=== PATIENT | male | born 1985 | race Caucasian/White ===

== ENCOUNTER 2018-02-13 16:39 | Observation (INO) | payer BC, OTHER ==
[~2018-02-13] VITALS: Ht 172.7 cm; Wt 119.2 kg
[~2018-02-13 16:39] MED LIST: CYCL-36 PO; DICY1TAB26 PO; LORTA10 PO; PROM25SU8 PO
[2018-02-13 16:45] VITALS: BP 159/81; PULSE 60; RESP 16; TEMP 98.6; O2SAT 97
[2018-02-13] MEDS ORDERED: AMOX250C3 PO (17:15)
[2018-02-13] MEDS ORDERED: NITROGLYCERIN 2% OINT 1 GM PACKET TOP ONE (17:30)
[2018-02-13] MEDS ORDERED: ASPIRIN 81 MG CHEW TAB PO ONE (17:30)
[2018-02-13] MEDS ORDERED: SODIUM CHLORIDE 0.9% FLUSH 10 ML FLUSH IVF PRN (17:30)
[2018-02-13 17:36] VITALS: BP 159/79; PULSE 92; RESP 18; O2SAT 99
--- NOTE | 2018-02-13 17:36 | RADRPT ---
EXAM DATE/TIME: 02/13/2018 17:20 [place] COMPARISON: No previous studies available for comparison. INDICATIONS : Chest pain, shortness of breath for 3 days MEDICAL HISTORY : None. SURGICAL HISTORY : None. ENCOUNTER: Initial ACUITY: 3 days PAIN SCORE: 7/10 LOCATION: Mid-line chest FINDINGS: There is prominence of the right peritracheal stripe this may relate to some rotation of the frontal view. adenopathy is not excluded. If indicated, CT would be suggested for further evaluation. Lungs a re grossly clear no effusion is suspected. CONCLUSION: Abnormal chest appearance Karl Miller MD on February 13, 2018 at 17:32 Board Certified Radiologist. This report was verified electronically.
[2018-02-13 17:55] LABS: AUTOMATED NEUTROPHIL # 4.5 TH/MM3 (1.8-7.7); BASOPHIL % 0.2 % (0.0-2.0); EOSINOPHIL # 0.2 TH/MM3 (0-0.4); EOSINOPHIL % 2.3 % (0.0-4.0); HEMATOCRIT 43.3 % (39.0-51.0); HEMOGLOBIN 14.5 GM/DL (13.0-17.0); LYMPH % 21.8 % (9.0-44.0); LYMPHOCYTE # 1.5 TH/MM3 (1.0-4.8); MEAN CELL VOLUME 89.2 FL (80.0-100.0); MEAN CORPUSCULAR HGB CONC 33.6 % (32.0-36.0); MEAN PLATELET VOLUME 9.1 FL (7.0-11.0); MONO % 10.5 % (0.0-8.0); MONOCYTE # 0.7 TH/MM3 (0-0.9); NEUT % 65.2 % (16.0-70.0); PLATELET COUNT 199 TH/MM3 (150-450); RED BLOOD COUNT 4.85 MIL/MM3 (4.50-5.90); RED CELL DISTRIBUTION WIDTH 12.7 % (11.6-17.2); WHITE BLOOD COUNT 6.9 TH/MM3 (4.0-11.0)
[2018-02-13] MEDS ORDERED: DULA10IN SQ (18:04)
[2018-02-13 18:05] LABS: CHLORIDE 104 MEQ/L (98-107); SODIUM (NA) 138 MEQ/L (136-145)
--- NOTE | 2018-02-13 18:05 | PD ---
HPI . Chest pain Chief Complaint: Chest Pain Time Seen by Provider: 17:14 Travel History International Travel<30 days: No Contact w/Intl Traveler<30days: No Traveled to known affect area: No History of Present Illness HPI This patient presents with chief complaint of chest pain. He has had chest pain that comes and goes for the last 1-2 weeks. The pain lasts anywhere from 1 -10 minutes. It occurs 2-3 times per day. He describes the pain as a pressure- like stabbing sensation when she rates 6/10. He states that he has subsequently developed a cough, congestion, subjective fever and myalgias. However, the chest pain preceded the cough, etc. by more than a week. He has risk factors for coronary artery disease in that he uses tobacco and has a history of diabetes. PFSH Past Medical History Musculoskeletal: Yes (CHRONIC BACK PAIN) Social History Alcohol Use: Yes (OCCASIONAL) Tobacco Use: Yes (2 PPD) Substance Use: No Allergies-Medications (Allergen,Severity, Reaction): Coded Allergies: No Known Allergies (Verified Adverse Reaction, Unknown, 02/13/18) Reported Meds & Prescriptions Reported Meds & Active Scripts Active Reported Trulicity Inj (Dulaglutide Inj) 0.75 Mg/0.5 Ml Pen 0.75 Mg SQ Q7D Amoxicillin 250 Mg Cap 0 PO DAILY Review of Systems Except as stated in HPI: all other systems reviewed are Neg General / Constitutional: Positive: Fever, Chills Cardiovascular: Positive: Chest Pain or Discomfort Respiratory: Positive: Cough Musculoskeletal: Positive: Myalgias Physical Exam Narrative GENERAL: This is a healthy-appearing young man who is in no distress. SKIN: warm/dry. Normal color. HEAD: Normocephalic. Atraumatic. EYES: Pupils equal and round. No scleral icterus. No injection or drainage. ENT: No nasal bleeding or discharge. Mucous membranes pink and moist. NECK: Trachea midline. Full range of motion without pain.. CARDIOVASCULAR: Regular rate and rhythm. Heart sounds normal. RESPIRATORY: No accessory muscle use. Clear to auscultation. Breath sounds equal bilaterally. Positive chest wall tenderness. GASTROINTESTINAL: Abdomen soft. Nontender. Bowel sounds present. Nondistended. MUSCULOSKELETAL: No obvious deformities. NEUROLOGICAL: Awake and alert. No obvious cranial nerve deficits. Motor grossly within normal limits. Normal speech. PSYCHIATRIC: Appropriate mood and affect; insight and judgment normal. Data Data Last Documented VS Vital Signs Date Time Temp Pulse Resp B/P (MAP) Pulse Ox O2 Delivery O2 Flow Rate FiO2 02/13/18 17:36 92 18 159/79 (105) 99 Room Air 02/13/18 16:45 98.6 Orders Orders Chest, Pa & Lat (02/13/18 17:15) Electrocardiogram (02/13/18 ) Basic Metabolic Panel (Bmp) (02/13/18 17:27) Complete Blood Count With Diff (02/13/18 17:27) Magnesium (Mg) (02/13/18 17:27) Prothrombin Time / Inr (Pt) (02/13/18 17:27) Act Partial Throm Time (Ptt) (02/13/18 17:27) Troponin I (02/13/18 17:27) Ecg Monitoring (02/13/18 17:27) Iv Access Insert/Monitor (02/13/18 17:27) Oximetry (02/13/18 17:27) Aspirin Chew (Aspirin Chew) (02/13/18 17:30) Nitroglycerin 2% Oint (Nitroglycerin 2% (02/13/18 17:30) Sodium Chloride 0.9% Flush (Ns Flush) (02/13/18 17:30) Labs Laboratory Tests Test 02/13/18 17:35 White Blood Count 6.9 TH/MM3 Red Blood Count 4.85 MIL/MM3 Hemoglobin 14.5 GM/DL Hematocrit 43.3 % Mean Corpuscular Volume 89.2 FL Mean Corpuscular Hemoglobin 30.0 PG Mean Corpuscular Hemoglobin Concent 33.6 % Red Cell Distribution Width 12.7 % Platelet Count 199 TH/MM3 Mean Platelet Volume 9.1 FL Neutrophils (%) (Auto) 65.2 % Lymphocytes (%) (Auto) 21.8 % Monocytes (%) (Auto) 10.5 % Eosinophils (%) (Auto) 2.3 % Basophils (%) (Auto) 0.2 % Neutrophils # (Auto) 4.5 TH/MM3 Lymphocytes # (Auto) 1.5 TH/MM3 Monocytes # (Auto) 0.7 TH/MM3 Eosinophils # (Auto) 0.2 TH/MM3 Basophils # (Auto) 0.0 TH/MM3 CBC Comment DIFF FINAL Differential Comment Prothrombin Time 10.5 SEC Prothromb Time International Ratio 1.0 RATIO Activated Partial Thromboplast Time 24.7 SEC Blood Urea Nitrogen 9 MG/DL Creatinine 0.83 MG/DL Random Glucose 85 MG/DL Calcium Level 9.6 MG/DL Magnesium Level 2.2 MG/DL Sodium Level 138 MEQ/L Potassium Level 4.0 MEQ/L Chloride Level 104 MEQ/L Carbon Dioxide Level 30.8 MEQ/L Anion Gap 3 MEQ/L Estimat Glomerular Filtration Rate 106 ML/MIN Troponin I LESS THAN 0.02 NG/ML MDM Medical Decision Making Medical Screen Exam Complete: Yes Emergency Medical Condition: Yes Interpretation(s) EKG shows a normal sinus rhythm with no acute ischemic change Differential Diagnosis Differential diagnosis of chest pain includes but is not limited to musculoskeletal pain, pulmonary embolism, acute coronary syndrome, pneumonia, pleurisy Narrative Course This is a patient with a history of KARLA, DM and tobacco use who presents to us with intermittent chest pain for the last couple of weeks. Cardiac workup is in process. He has been given aspirin and Nitropaste. CBC & BMP Diagram 02/13/18 17:35 Calcium Level 9.6, Magnesium Level 2.2 trop < 0.02 CXR: There is prominence of the right peritracheal stripe this may relate to some rotation of the frontal view. adenopathy is not excluded. If indicated, CT would be suggested for further evaluation. Lungs are grossly clear no effusion is suspected. The patient has remained pain-free in our department. He is agreeable to admission to the chest pain center for further evaluation of his chest pain. Diagnosis Primary Impression: Chest pain Qualified Codes: R07.9 - Chest pain, unspecified Admitting Information Admitting Physician Requests: Observation Condition: Stable Marilee Resendiz MD Feb 13, 2018 18:05
[2018-02-13 18:08] LABS: CALCIUM 9.6 MG/DL (8.5-10.1)
[2018-02-13 18:09] LABS: BICARBONATE 30.8 MEQ/L (21.0-32.0); BLOOD UREA NITROGEN 9 MG/DL (7-18); GLUCOSE,RANDOM 85 MG/DL (74-106); MAGNESIUM 2.2 MG/DL (1.5-2.5)
[2018-02-13 18:11] LABS: PROTHROMBIN TIME - PATIENT 10.5 SEC (9.8-11.6)
[2018-02-13 18:12] LABS: CREATININE 0.83 MG/DL (0.60-1.30); GLOMERULAR FILTRATION RATE 106 ML/MIN (>89)
[2018-02-13 18:17] LABS: TROPONIN I LESS THAN 0.02 NG/ML (0.02-0.05)
[2018-02-13 18:28] VITALS: BP 154/85; PULSE 76; RESP 18; O2SAT 97
--- NOTE | 2018-02-13 19:05 | PD ---
Physical Exam Time Seen by Provider: 19:[address] no left this patient with me to admit to the chest pain center. Data Data Last Documented VS Vital Signs Date Time Temp Pulse Resp B/P (MAP) Pulse Ox O2 Delivery O2 Flow Rate FiO2 02/13/18 18:28 76 18 154/85 (108) 97 Room Air 02/13/18 16:45 98.6 Orders Orders Chest, Pa & Lat (02/13/18 17:15) Electrocardiogram (02/13/18 ) Basic Metabolic Panel (Bmp) (02/13/18 17:27) Complete Blood Count With Diff (02/13/18 17:27) Magnesium (Mg) (02/13/18 17:27) Prothrombin Time / Inr (Pt) (02/13/18 17:27) Act Partial Throm Time (Ptt) (02/13/18 17:27) Troponin I (02/13/18 17:27) Ecg Monitoring (02/13/18 17:27) Iv Access Insert/Monitor (02/13/18 17:27) Oximetry (02/13/18 17:27) Aspirin Chew (Aspirin Chew) (02/13/18 17:30) Nitroglycerin 2% Oint (Nitroglycerin 2% (02/13/18 17:30) Sodium Chloride 0.9% Flush (Ns Flush) (02/13/18 17:30) Labs Laboratory Tests Test 02/13/18 17:35 White Blood Count 6.9 TH/MM3 Red Blood Count 4.85 MIL/MM3 Hemoglobin 14.5 GM/DL Hematocrit 43.3 % Mean Corpuscular Volume 89.2 FL Mean Corpuscular Hemoglobin 30.0 PG Mean Corpuscular Hemoglobin Concent 33.6 % Red Cell Distribution Width 12.7 % Platelet Count 199 TH/MM3 Mean Platelet Volume 9.1 FL Neutrophils (%) (Auto) 65.2 % Lymphocytes (%) (Auto) 21.8 % Monocytes (%) (Auto) 10.5 % Eosinophils (%) (Auto) 2.3 % Basophils (%) (Auto) 0.2 % Neutrophils # (Auto) 4.5 TH/MM3 Lymphocytes # (Auto) 1.5 TH/MM3 Monocytes # (Auto) 0.7 TH/MM3 Eosinophils # (Auto) 0.2 TH/MM3 Basophils # (Auto) 0.0 TH/MM3 CBC Comment DIFF FINAL Differential Comment Prothrombin Time 10.5 SEC Prothromb Time International Ratio 1.0 RATIO Activated Partial Thromboplast Time 24.7 SEC Blood Urea Nitrogen 9 MG/DL Creatinine 0.83 MG/DL Random Glucose 85 MG/DL Calcium Level 9.6 MG/DL Magnesium Level 2.2 MG/DL Sodium Level 138 MEQ/L Potassium Level 4.0 MEQ/L Chloride Level 104 MEQ/L Carbon Dioxide Level 30.8 MEQ/L Anion Gap 3 MEQ/L Estimat Glomerular Filtration Rate 106 ML/MIN Troponin I LESS THAN 0.02 NG/ML [facility] Medical Record Reviewed: Yes Supervised Visit with FELICIANO: No Interpretation(s) The EKG shows normal sinus rhythm an EKG is normal. The cardiac enzymes are normal. Differential Diagnosis Chest pain etiology undetermined, acute coronary syndrome, non-STEMI myocardial infarction Narrative Course The patient has chest pain etiology undetermined. He will be admitted to the chest pain center. Diagnosis Primary Impression: Chest pain Qualified Codes: R07.9 - Chest pain, unspecified Condition: Stable Marilee Resendiz MD Feb 13, 2018 19:05
[2018-02-13] MEDS ORDERED: SODIUM CHLORIDE 0.9% FLUSH 10 ML FLUSH IV FLUSH PRN (19:30)
[2018-02-13] MEDS ORDERED: ONDANSETRON HCL 4 MG/2 ML VIAL IV PUSH PRN (19:30)
--- NOTE | 2018-02-13 19:35 | PD ---
Physical Exam Time Seen by Provider: 19:32 Narrative The patient was given to me by Dr. Estrella to make a disposition/admit to chest pain center. Data Data Last Documented VS Vital Signs Date Time Temp Pulse Resp B/P (MAP) Pulse Ox O2 Delivery O2 Flow Rate FiO2 02/13/18 18:28 76 18 154/85 (108) 97 Room Air 02/13/18 16:45 98.6 Orders Orders Chest, Pa & Lat (02/13/18 17:15) Electrocardiogram (02/13/18 ) Basic Metabolic Panel (Bmp) (02/13/18 17:27) Complete Blood Count With Diff (02/13/18 17:27) Magnesium (Mg) (02/13/18 17:27) Prothrombin Time / Inr (Pt) (02/13/18 17:27) Act Partial Throm Time (Ptt) (02/13/18 17:27) Troponin I (02/13/18 17:27) Ecg Monitoring (02/13/18 17:27) Iv Access Insert/Monitor (02/13/18 17:27) Oximetry (02/13/18 17:27) Aspirin Chew (Aspirin Chew) (02/13/18 17:30) Nitroglycerin 2% Oint (Nitroglycerin 2% (02/13/18 17:30) Sodium Chloride 0.9% Flush (Ns Flush) (02/13/18 17:30) Place In Observation (02/13/18 19:26) Activity Bed Rest With Brp (02/13/18 19:26) Vital Signs (Adult) Q4H (02/13/18 19:26) Cardiac Rhythm .As Directed (02/13/18 19:26) Notify Dr: Other .PRN (02/13/18 19:26) Notify DrKirt Parameters (02/13/18 19:26) Resp Oxygen Nasal Cannula (02/13/18 ) Diet Npo (02/14/18 Breakfast) Ckmb (Isoenzyme) Profile (02/13/18 20:35) Ckmb (Isoenzyme) Profile (02/13/18 23:35) Troponin I (02/13/18 20:35) Troponin I (02/13/18 23:35) Electrocardiogram (02/13/18 20:35) Electrocardiogram (3/28/18 23:35) ^ Obtain (02/13/18 19:26) Sodium Chlor 0.9% 1000 Ml Inj (Ns 1000 M (02/13/18 19:26) Sodium Chloride 0.9% Flush (Ns Flush) (02/13/18 19:30) Sodium Chloride 0.9% Flush (Ns Flush) (02/13/18 21:00) Acetaminophen (Tylenol) (02/13/18 19:30) Ondansetron Inj (Zofran Inj) (02/13/18 19:30) Ornamental Plasterer Helper / Telemetry KATIANA.Q8H (02/13/18 19:26) Heparin Inj (Heparin Inj) (02/13/18 19:30) Labs Laboratory Tests Test 02/13/18 17:35 White Blood Count 6.9 TH/MM3 Red Blood Count 4.85 MIL/MM3 Hemoglobin 14.5 GM/DL Hematocrit 43.3 % Mean Corpuscular Volume 89.2 FL Mean Corpuscular Hemoglobin 30.0 PG Mean Corpuscular Hemoglobin Concent 33.6 % Red Cell Distribution Width 12.7 % Platelet Count 199 TH/MM3 Mean Platelet Volume 9.1 FL Neutrophils (%) (Auto) 65.2 % Lymphocytes (%) (Auto) 21.8 % Monocytes (%) (Auto) 10.5 % Eosinophils (%) (Auto) 2.3 % Basophils (%) (Auto) 0.2 % Neutrophils # (Auto) 4.5 TH/MM3 Lymphocytes # (Auto) 1.5 TH/MM3 Monocytes # (Auto) 0.7 TH/MM3 Eosinophils # (Auto) 0.2 TH/MM3 Basophils # (Auto) 0.0 TH/MM3 CBC Comment DIFF FINAL Differential Comment Prothrombin Time 10.5 SEC Prothromb Time International Ratio 1.0 RATIO Activated Partial Thromboplast Time 24.7 SEC Blood Urea Nitrogen 9 MG/DL Creatinine 0.83 MG/DL Random Glucose 85 MG/DL Calcium Level 9.6 MG/DL Magnesium Level 2.2 MG/DL Sodium Level 138 MEQ/L Potassium Level 4.0 MEQ/L Chloride Level 104 MEQ/L Carbon Dioxide Level 30.8 MEQ/L Anion Gap 3 MEQ/L Estimat Glomerular Filtration Rate 106 ML/MIN Troponin I LESS THAN 0.02 NG/ML [facility] Medical Record Reviewed: Yes Supervised Visit with FELICIANO: No Interpretation(s) The EKG is normal in the cardiac enzymes are normal. Differential Diagnosis Chest pain etiology undetermined, acute coronary syndrome-unlikely, non-STEMI- unlikely Narrative Course The patient has chest pain etiology undetermined. Plan: He will be admitted to the chest pain center for a stress test/rule out UT. Diagnosis Primary Impression: Chest pain Qualified Codes: R07.9 - Chest pain, unspecified Admitting Information Admitting Physician Requests: Observation Condition: Stable Jignesh Bland MD Feb 13, 2018 19:35
[2018-02-13] MEDS: SODIUM CHLOR 0.9% 1000 ML INJ 1,000 ML IV SCH (19:38)
[2018-02-13 19:40] VITALS: BP 116/67; PULSE 104; RESP 16; O2SAT 97
[2018-02-13 20:00] VITALS: BP 113/60; PULSE 102; PULSE 83; RESP 16; TEMP 98.4; O2SAT 96
[2018-02-13] MEDS: SODIUM CHLORIDE 0.9% FLUSH 10 ML FLUSH IV FLUSH SCH (20:53)
[2018-02-13] MEDS: HEPARIN SODIUM - SQ 10,000 UNITS/ML VIAL SQ SCH (20:53)
[2018-02-13 21:10] VITALS: O2SAT 95
[2018-02-13 21:32] LABS: TROPONIN I LESS THAN 0.02 NG/ML (0.02-0.05)
[2018-02-13] MEDS: ACETAMINOPHEN 500 MG CPLT PO PRN (22:59)
[2018-02-13 23:20] LABS: TROPONIN I LESS THAN 0.02 NG/ML (0.02-0.05)
[2018-02-14] VITALS: BP 124/69; PULSE 90; RESP 16; TEMP 98.8; O2SAT 95
[2018-02-14 04:00] VITALS: BP 107/63; PULSE 85; RESP 16; TEMP 98; O2SAT 96
[2018-02-14] MEDS: HEPARIN SODIUM - SQ 10,000 UNITS/ML VIAL SQ SCH (05:00)
[2018-02-14] MEDS: SODIUM CHLOR 0.9% 1000 ML INJ 1,000 ML IV SCH (05:34)
[2018-02-14] MEDS: ACETAMINOPHEN 500 MG CPLT PO PRN (05:35)
[2018-02-14 08:00] VITALS: BP 119/83; PULSE 73; RESP 18; TEMP 97.2; O2SAT 96
--- NOTE | 2018-02-14 08:11 | HHI.HP ---
[facility] Service [facility] Primary Care Physician Ernestina Neville MD Admission Diagnosis Chest pain Diagnoses: (1) Chest pain Diagnosis: Principal Chief Complaint: Chest discomfort Travel History International Travel<30 Days: No Contact w/Intl Traveler <30 Da: No Traveled to Known Affected Are: No History of Present Illness 32-year-old male with known history of hypertension, diabetes, obstructive sleep apnea who presented to the emergency department because of chest discomfort. Patient states that for the last week he has been experiencing chest discomfort in the mid part of his chest that is reproducible on palpation that happens intermittently proximally 3-5 times daily. Patient denies any radiation to the neck, back, shoulder, arm. Denies any nausea, vomiting, diaphoresis, lightheadedness, dizziness. Pain is not worsened with exertion. He states that he does get some shortness of breath associated with the discomfort. The pain will last for a couple minutes up to 10 minutes at a time and resolves on its own. Pain has happened at night, however it does happen more during the day. The patient came to the emergency department for evaluation was given aspirin and Nitropaste. The pain resolved after the use of the medication. Patient indicates that a few years ago he did have an evaluation done by Dr. Salazar with an echocardiogram and Holter monitor. He thinks he may have been told he has some atrial fibrillation. Does not appear as if he is being treated for this time. Patient does have history of hypertension, he was taken off blood pressure medication in the past however he was just started back on lisinopril due to his history of hypertension, diabetes for kidney protection. Patient is not taking at this time. Patient does have increased risk factors with father just undergoing three-vessel coronary bypass surgery and aortic valve replacement at age 64. He does have history of tobacco use. Patient was recommended observation of the chest pain center. Patient does indicate that he is under a lot more stress lately just got in November and he and his is expecting a new child. Review of Systems Respiratory: COMPLAINS OF: Shortness of breath Cardiovascular: COMPLAINS OF: Chest pain Except as stated in HPI: all other systems reviewed are Neg Past Family Social History Past Medical History History of hypertension Diabetes Obstructive sleep apnea Past Surgical History Carpal tunnel surgery left wrist EGD/colonoscopy Reported Medications Reported Meds & Active Scripts Active Reported Trulicity Inj (Dulaglutide Inj) 0.75 Mg/0.5 Ml Pen 0.75 Mg SQ Q7D Amoxicillin 250 Mg Cap 0 PO DAILY Allergies: Coded Allergies: No Known Allergies (Verified Allergy, Unknown, 02/13/18) Family History Reviewed and significant for father alive at age 64 with heart disease just underwent three-vessel bypass surgery with aortic valve replacement. Mother is alive at 66 with multiple medical problems as well. Physical Exam Vital Signs Vital Signs Date Time Temp Pulse Resp B/P (MAP) Pulse Ox O2 Delivery O2 Flow Rate FiO2 02/14/18 04:00 98.0 85 16 107/63 (78) 96 02/14/18 00:00 98.8 90 16 124/69 (87) 95 02/13/18 21:10 95 21 02/13/18 20:36 02/13/18 20:00 102 02/13/18 20:00 98.4 83 16 113/60 (77) 96 02/13/18 19:40 104 16 116/67 (83) 97 Room Air 02/13/18 18:28 76 18 154/85 (108) 97 Room Air 02/13/18 17:36 92 18 159/79 (105) 99 Room Air 02/13/18 17:10 88 02/13/18 16:45 98.6 60 16 159/81 (107) 97 Physical Exam GENERAL: Well-developed, well-nourished, in no acute distress. alert and orientated HEENT: Head is normocephalic without any lesions or masses noted. Facial features are symmetric. Eyes: Pupils equal round reactive to light. Extraocular muscles are intact. Conjunctivae were clear. Oropharyngeal: Pharynx without any erythema edema. Tongue is midline without deviation. Buccal mucosa is moist without any masses or lesions NECK: Supple without any masses. Trachea midline no deviation. No JVD, no bruits are appreciated CARDIAC: Regular rhythm, regular rate. S1/S2 are heard. No murmurs gallops or rubs. Reproducible palpable tenderness noted in the area of the discomfort midsternum LUNGS: Clear to auscultation bilaterally. No wheeze, rhonchi or rales. No use of accessory muscles on inspiration or expiration. ABDOMEN: Soft, nontender. Nondistended. Bowel sounds heard in all 4 quadrants. No organomegaly or masses. Negative rebound, negative guarding EXTREMITIES: No edema, pulses are equal bilaterally. No cyanosis or clubbing NEUROLOGY: Mood and affect appear appropriate. Cranial nerves II through XII grossly intact. Muscle strength 5/5 in upper and lower extremities bilaterally. Deep tendon reflexes are 2+ in upper and lower extremities bilaterally. Laboratory Laboratory Tests Test 02/13/18 17:35 02/13/18 21:03 02/13/18 22:45 White Blood Count 6.9 Red Blood Count 4.85 Hemoglobin 14.5 Hematocrit 43.3 Mean Corpuscular Volume 89.2 Mean Corpuscular Hemoglobin 30.0 Mean Corpuscular Hemoglobin Concent 33.6 Red Cell Distribution Width 12.7 Platelet Count 199 Mean Platelet Volume 9.1 Neutrophils (%) (Auto) 65.2 Lymphocytes (%) (Auto) 21.8 Monocytes (%) (Auto) 10.5 Eosinophils (%) (Auto) 2.3 Basophils (%) (Auto) 0.2 Neutrophils # (Auto) 4.5 Lymphocytes # (Auto) 1.5 Monocytes # (Auto) 0.7 Eosinophils # (Auto) 0.2 Basophils # (Auto) 0.0 CBC Comment DIFF FINAL Differential Comment Prothrombin Time 10.5 Prothromb Time International Ratio 1.0 Activated Partial Thromboplast Time 24.7 Blood Urea Nitrogen 9 Creatinine 0.83 Random Glucose 85 Calcium Level 9.6 Magnesium Level 2.2 Sodium Level 138 Potassium Level 4.0 Chloride Level 104 Carbon Dioxide Level 30.8 Anion Gap 3 Estimat Glomerular Filtration Rate 106 Troponin I LESS THAN 0.02 LESS THAN 0.02 LESS THAN 0.02 Total Creatine Kinase 70 66 Result Diagram: 02/13/18 1735 02/13/18 173 Imaging Last Impressions Chest X-Ray 02/13/185 Signed Impressions: Service Date/Time: Tuesday, February 13, 2018 17:20 - CONCLUSION: Abnormal chest appearance MD Annalisa Steinberg VTE Risk Assessment Annalisa VTE Risk Assessment: No/Low Risk (score <= 1) Caprini Risk Assessment Model Point Value = 1 Point Value = 2 Point Value = 3 Point Value = 5 Age 41-60 Minor surgery BMI > 25 kg/m2 Swollen legs Varicose veins or History of unexplained or recurrent spontaneous Oral contraceptives or hormone replacement Sepsis (< 1 month) Serious lung disease, including pneumonia (< 1 month) Abnormal pulmonary function Acute myocardial infarction Congestive heart failure (< 1 month) History of inflammatory bowel disease Medical patient at bed rest Age 61-74 Arthroscopic surgery Major open surgery (> 45 min) Laparoscopic surgery (> 45 min) Malignancy Confined to bed (> 72 hours) Immobilizing plaster cast Central venous access Age >= 75 History of VTE Family history of VTE Factor V Leiden Prothrombin [id number] Lupus anticoagulant Anticardiolipin antibodies Elevated serum homocysteine Heparin-induced thrombocytopenia Other congenital or acquired thrombophilia Stroke (< 1 month) Elective arthroplasty Hip, pelvis, or leg fracture Acute spinal cord injury (< 1 month) Prophylaxis Regimen Total Risk Factor Score Risk Level Prophylaxis Regimen 0-1 Low Early ambulation 2 Moderate Order ONE of the following: *Sequential Compression Device (SCD) *Heparin 5000 units SQ BID 3-4 Higher Order ONE of the following medications: *Heparin 5000 units SQ TID *Enoxaparin/Lovenox 40 mg SQ daily (WT < 150 kg, CrCl > 30 mL/min) *Enoxaparin/Lovenox 30 mg SQ daily (WT < 150 kg, CrCl > 10-29 mL/min) *Enoxaparin/Lovenox 30 mg SQ BID (WT < 150 kg, CrCl > 30 mL/min) AND/OR *Sequential Compression Device (SCD) 5 or more Highest Order ONE of the following medications: *Heparin 5000 units SQ TID (Preferred with Epidurals) *Enoxaparin/Lovenox 40 mg SQ daily (WT < 150 kg, CrCl > 30 mL/min) *Enoxaparin/Lovenox 30 mg SQ daily (WT < 150 kg, CrCl > 10-29 mL/min) *Enoxaparin/Lovenox 30 mg SQ BID (WT < 150 kg, CrCl > 30 mL/min) AND *Sequential Compression Device (SCD) Assessment and Plan Assessment and Plan Chest pain Patient with increased risk factors to include hypertension, diabetes, body habitus, history of tobacco use, family history of heart disease Patient has been ruled out for acute coronary event with serial cardiac enzymes that have remained negative Serial cardiac enzymes were performed and reviewed by myself which does show sinus rhythm with premature ventricular contractions Exercise stress test was performed which did not indicate any ischemia. Low risk Patient continue on aspirin, nitroglycerin as needed Diabetes Accu-Cheks with sliding scale insulin DVT prevention Low risk, early ambulation Discharge disposition Discharge home in stable condition Activity: Ad silvana. Diet: Diabetic diet Medication per medication reconciliation Follow-up with primary medical doctor in 1 week Problem Qualifiers (1) Chest pain: Qualified Codes: R07.9 - Chest pain, unspecified Christopher Bland Feb 14, 2018 08:11
[2018-02-14] MEDS ORDERED: GLUCAGON 1 MG/ML VIAL OTHER PRN (08:15)
[2018-02-14] MEDS ORDERED: DEXTROSE 50% IN WATER 50 ML VIAL(D50) IV PUSH PRN (08:15)
[2018-02-14] MEDS: SODIUM CHLORIDE 0.9% FLUSH 10 ML FLUSH IV FLUSH SCH (09:00)
--- NOTE | 2018-02-14 10:32 | HHI.DCPOC ---
Discharge Care Plan Diagnosis: (1) Chest pain Goals to Promote Your Health * To prevent worsening of your condition and complications * To maintain your health at the optimal level Directions to Meet Your Goals Take your medications as prescribed Follow your dietary instruction Follow activity as directed Keep your appointments as scheduled Take your immunizations and boosters as scheduled If your symptoms worsen call your PCP, if no PCP go to Urgent Care Center or Emergency Room Smoking is Dangerous to Your Health. Avoid second hand smoke Call the 24-hour hour crisis hotline for domestic abuse at Christopher Bland Feb 14, 2018 10:32
[2018-02-14] MEDS ORDERED: INSULIN ASPART SUPPLEMENTAL SCALE SQ SCH (12:00)
--- NOTE | 2018-02-14 12:42 | EKG ---
Date Performed: 02/13/2018 Time Performed: 22:47:56 PTAGE: 32 years EKG: SINUS TACHYCARDIA WITH FREQUENT VENTRICULAR PREMATURE COMPLEXES ABNORMAL RHYTHM ECG PREVIOUS TRACING : 02/13/2018 19.33 Since previous tracing, no significant change noted DOCTOR: Vaughn Boone Interpretating Date/Time 02/14/2018 12:41:34
--- NOTE | 2018-02-14 12:43 | EKG ---
Date Performed: 02/13/2018 Time Performed: 19:33:17 PTAGE: 32 years EKG: SINUS TACHYCARDIA WITH FREQUENT VENTRICULAR PREMATURE COMPLEXES ABNORMAL RHYTHM ECG PREVIOUS TRACING : 02/13/2018 16.54 Compared to previous tracing PVCs are new. DOCTOR: Vaughn Boone Interpretating Date/Time 02/14/2018 12:42:46
--- NOTE | 2018-02-14 12:43 | EKG ---
Date Performed: 02/13/2018 Time Performed: 16:54:37 PTAGE: 32 years EKG: Sinus rhythm NORMAL ECG NO PREVIOUS TRACING DOCTOR: Vaughn Boone Interpretating Date/Time 02/14/2018 12:42:55
--- NOTE | 2018-02-18 12:41 | TR ---
Date Performed: 02/14/2018 Time Performed: 09:40:41 DOCTOR: Vaughn Boone DRUG LIST: CLINICAL HISTORY: REASON FOR TEST: REASON FOR ENDING: Completed Protocol OBSERVATION: Chest Pain: None CONCLUSION: Patient tolerated NETO protocol with Total Exercise Time=7:13 Maximum ER=437 % Max HR Achieved=86.0% Maximum ZO=830/105, Patient was asymptomatic during entire procedure, Testing stopp ed secondary to goals acheived, patient reached trarget HR, During peak exercise, quick upsloping ST segments. HR and BP appropriate response to exercise, Recovery period, HR and BP returned to baseline . Patient had frequent PVC prior to exertion, PVC went away during exercise but returned in recovery period COMMENTS: Conclusion: Normal treadmill exercise. No evidence of ischemia.
== END 2018-02-14 13:49 | disposition home or self-care (01) ==
LOC: PHED 16:39 → PHEDA 19:36 → PH3A 20:33
PROVIDERS: ADMIT Hospitalist; ATTEND Hospitalist
DX: R07.89 Other chest pain (principal); R00.1 Bradycardia, unspecified; R05 Cough; R50.9 Fever, unspecified; M79.1 Myalgia; I49.3 Ventricular premature depolarization; R06.02 Shortness of breath; I10 Essential (primary) hypertension; E11.9 Type 2 diabetes mellitus without complications; G47.33 Obstructive sleep apnea (adult) (pediatric); Z87.891 Personal history of nicotine dependence; Z95.2 Presence of prosthetic heart valve; Z82.49 Family history of ischemic heart disease and other diseases of the circulatory system
CPT/HCPCS: 71046; 80048; 82550; 83735; 84484; 85025; 85610; 85730; 93005; 93017; 96372; 99285; G0378; J1644; J7030